=== PATIENT | female | born 1945 | race Caucasian/White ===

== ENCOUNTER 2019-01-09 12:19 | Emergency (ER) | payer MEDICARE ==
[2019-01-09 12:38] VITALS: BP 156/106
== END 2019-01-09 13:08 | disposition left against medical advice (07) ==
LOC: ED 12:19
DX: N64.4 Mastodynia (principal); Z53.21 Procedure and treatment not carried out due to patient leaving prior to being seen by health care provider
CPT/HCPCS: 99281